=== PATIENT | female | born 1990 | race American Indian/Alaskan Native ===

== ENCOUNTER 2017-07-10 22:40 | Emergency (ER) | payer BC ==
[2017-07-11 00:18] LABS: Bacteria,Urine 4+ /HPF (Negative); Bilirubin,Urine NEG (Negative); Blood,Urine LG (Negative); Ketones,Urine TR mg/dL (Negative); Leukocyte Esterase,Urine LG (Negative); Mucus,Urine 3+ /HPF; Nitrite,Urine POS (Negative); Urobilinogen,Urine < 2.0 mg/dL (<2.0)
[2017-07-11 00:37] LABS: RBC,Urine > 182.0 /HPF (0.0-6.0); WBC,Urine > 182.0 /HPF (0.0-6.0)
[2017-07-11] MEDS ORDERED: ZOFRAN IV ONE (01:16)
[2017-07-11] MEDS ORDERED: NACL 0.9% 1000 ML 1,000 ML IV ONE (01:16)
[2017-07-11] MEDS ORDERED: TYLENOL PO ONE (01:16)
[2017-07-11] MEDS ORDERED: MORPHINE IV ONE (01:16)
[2017-07-11] MEDS ORDERED: LEVAQUIN 500MG/100ML 500 MG/100 ML BAG IV ONE (01:16)
--- NOTE | 2017-07-11 01:19 | Emergency Department Report ---
ED Female HPI - General Chief complaint: Urogenital-Female Stated complaint: BLOOD IN URINE Time Seen by Provider: 07/11/17 01:12 Source: patient, family Mode of arrival: Ambulatory Limitations: No Limitations - History of Present Illness Initial comments: Patient reports that she started having blood in her urine today. Patient states she went to urgent care today and they told her she had a UTI and gave her prescription. She states they told her if it got worse to come to the emergency room. Patient says she is having lower back pain 6 out of 10, per urinary burning and frequency and feels like she is not fully empty her bladder. She reports chills but denies any nausea or vomiting. She says she is able to tolerate oral liquids. Lower back is achy. Last menstrual period . denies any abdominal pain. MD Complaint: dysuria, other (blood in her urine) -: This afternoon Location: other (pain, back) Severity: moderate Severity scale (0 -10): 6 Quality: aching Consistency: constant Improves with: none Worsens with: urination (pain with urination) Are you Now?: No Last Menstrual Period: 06/23/17 EDC: 03/30/18 Associated Symptoms: fever/chills, dysuria, hematuria. denies: vaginal discharge, vaginal bleeding, abdominal pain, nausea/vomiting, headaches, loss of appetite, rash, seizure, shortness of breath, syncope, weakness - Related Data Sexually active: Yes Previous Rx's Medication Instructions Recorded Last Taken Type Acetaminophen [Tylenol] 500 mg PO Q6HR PRN #12 tablet 07/11/17 Unknown Rx Fluconazole [Diflucan TAB] 150 mg PO ONCE #3 tablet 07/11/17 Unknown Rx Nitrofurantoin [place]/M-Cryst 100 mg PO Q12HR #14 capsule 07/11/17 Unknown Rx [Macrobid CAP] Phenazopyridine [Pyridium] 100 mg PO TID PRN #12 tab 07/11/17 Unknown Rx Allergies Allergy/AdvReac Type Severity Reaction Status Date / Time amoxicillin Allergy Rash Verified 07/10/17 23:10 Sulfa (Sulfonamide Allergy Unknown Verified 07/10/17 23:10 Antibiotics) ED Review of Systems ROS: Stated complaint: BLOOD IN URINE Other details as noted in HPI Comment: All other systems reviewed and negative Constitutional: chills, fever. denies: malaise, weakness Respiratory: no symptoms reported Cardiovascular: denies: chest pain, palpitations, edema, syncope Gastrointestinal: denies: abdominal pain, nausea, vomiting, diarrhea, constipation Genitourinary: urgency, dysuria, frequency, hematuria. denies: discharge, abnormal menses Musculoskeletal: back pain. denies: joint swelling, arthralgia, myalgia Skin: denies: rash Neurological: denies: headache, weakness, abnormal gait, vertigo ED Past Medical Hx - Past Medical History Previous Medical History?: No - Surgical History Past Surgical History?: No - Family History Family history: no significant - Social History Smoking Status: Never Smoker Substance Use Type: None Other Social History: Single - Medications Home Medications: Home Medications Medication Instructions Recorded Confirmed Last Taken Type Acetaminophen [Tylenol] 500 mg PO Q6HR PRN #12 tablet 07/11/17 Unknown Rx Fluconazole [Diflucan TAB] 150 mg PO ONCE #3 tablet 07/11/17 Unknown Rx Nitrofurantoin [place]/M-Cryst 100 mg PO Q12HR #14 capsule 07/11/17 Unknown Rx [Macrobid CAP] Phenazopyridine [Pyridium] 100 mg PO TID PRN #12 tab 07/11/17 Unknown Rx ED Physical Exam - General Limitations: No Limitations General appearance: alert, in no apparent distress - Head Head exam: Present: atraumatic, normocephalic, normal inspection - Eye Eye exam: Present: normal appearance, PERRL, EOMI Pupils: Present: normal accommodation - ENT ENT exam: Present: normal exam, normal orophraynx, mucous membranes moist - Neck Neck exam: Present: normal inspection, full ROM. Absent: tenderness, meningismus, lymphadenopathy - Respiratory Respiratory exam: Present: normal lung sounds bilaterally. Absent: respiratory distress, chest wall tenderness - Cardiovascular Cardiovascular Exam: Present: normal rhythm, tachycardia, normal heart sounds. Absent: systolic murmur, diastolic murmur - GI/Abdominal GI/Abdominal exam: Present: soft, normal bowel sounds. Absent: distended, tenderness, guarding, rebound, rigid - Extremities Exam Extremities exam: Present: normal inspection, full ROM, normal capillary refill. Absent: tenderness, pedal edema, joint swelling, calf tenderness - Back Exam Back exam: Present: normal inspection, full ROM, CVA tenderness (R), CVA tenderness (L). Absent: tenderness, muscle spasm, paraspinal tenderness, vertebral tenderness, rash noted - Neurological Exam Neurological exam: Present: alert, oriented X3, normal gait, reflexes normal. Absent: motor sensory deficit - Psychiatric Psychiatric exam: Present: normal affect, normal mood - Skin Skin exam: Present: warm, dry, intact, normal color. Absent: rash ED Course Vital Signs 07/10/17 07/11/17 23:14 03:55 Temperature 99.4 F 99.1 F Pulse Rate 110 H 98 H Respiratory 18 18 Rate Blood Pressure 127/86 Blood Pressure 120/75 [Left] O2 Sat by Pulse 100 100 Oximetry Vital Signs 07/10/17 07/11/17 23:14 03:55 Temperature 99.4 F 99.1 F Pulse Rate 110 H 98 H Respiratory 18 18 Rate Blood Pressure 127/86 Blood Pressure 120/75 [Left] O2 Sat by Pulse 100 100 Oximetry - Reevaluation(s) Reevaluation #1: 07/11/17 03:55 Patient received 1 liter ivf ns and levaquin 500mg iv. Patient given morphine 4 mg iv and zofran 4 mg iv . Tylenol 650 mg po for low grade temperature. 07/11/17 03:57 ED Medical Decision Making - Lab Data Result diagrams: 07/11/17 01:20 07/11/17 01:20 Lab Results 07/10/17 07/11/17 07/11/17 Range/Units 23:22 01:20 01:20 WBC 13.4 H (4.5-11.0) K/mm3 RBC 4.32 (3.65-5.03) M/mm3 Hgb 11.9 (10.1-14.3) gm/dl Hct 36.4 (30.3-42.9) % MCV 84 (79-97) fl MCH 28 (28-32) pg MCHC 33 (30-34) % RDW 13.1 L (13.2-15.2) % Plt Count 292 (140-440) K/mm3 Lymph % (Auto) 7.4 L (13.4-35.0) % [place] % (Auto) 3.9 (0.0-7.3) % Eos % (Auto) 0.1 (0.0-4.3) % Baso % (Auto) 0.3 (0.0-1.8) % Lymph # 1.0 L (1.2-5.4) K/mm3 [place] # 0.5 (0.0-0.8) K/mm3 Eos # 0.0 (0.0-0.4) K/mm3 Baso # 0.0 (0.0-0.1) K/mm3 Seg Neutrophils % 88.3 H (40.0-70.0) % Seg Neutrophils # 11.8 H (1.8-7.7) K/mm3 Sodium 139 (137-145) mmol/L Potassium 4.3 (3.6-5.0) mmol/L Chloride 99.3 (98-107) mmol/L Carbon Dioxide 24 (22-30) mmol/L Anion Gap 20 mmol/L BUN 10 (7-17) mg/dL Creatinine 0.6 L (0.7-1.2) mg/dL Estimated GFR > 60 ml/min BUN/Creatinine Ratio 16.66 % Glucose 97 (65-100) mg/dL Calcium 9.8 (8.4-10.2) mg/dL HCG, Qual (Negative) Urine Color Yellow (Yellow) Urine Turbidity Turbid (Clear) Urine pH 5.0 (5.0-7.0) Ur Specific [place] 1.021 (1.003-1.030) Urine Protein 100 mg/dl (Negative) mg/dL Urine Glucose (UA) Neg (Negative) mg/dL Urine Ketones Tr (Negative) mg/dL Urine Blood Lg (Negative) Urine Nitrite Pos (Negative) Urine Bilirubin Neg (Negative) Urine Urobilinogen < 2.0 (<2.0) mg/dL Ur Leukocyte Esterase Lg (Negative) Urine WBC (Auto) > 182.0 H (0.0-6.0) /HPF Urine RBC (Auto) > 182.0 (0.0-6.0) /HPF Urine Bacteria (Auto) 4+ (Negative) /HPF Urine WBC Clumps 3+ /HPF Urine Mucus 3+ /HPF Urine Yeast (Budding) 3+ /HPF 07/11/17 Range/Units 01:20 WBC (4.5-11.0) K/mm3 RBC (3.65-5.03) M/mm3 Hgb (10.1-14.3) gm/dl Hct (30.3-42.9) % MCV (79-97) fl MCH (28-32) pg MCHC (30-34) % RDW (13.2-15.2) % Plt Count (140-440) K/mm3 Lymph % (Auto) (13.4-35.0) % [place] % (Auto) (0.0-7.3) % Eos % (Auto) (0.0-4.3) % Baso % (Auto) (0.0-1.8) % Lymph # (1.2-5.4) K/mm3 [place] # (0.0-0.8) K/mm3 Eos # (0.0-0.4) K/mm3 Baso # (0.0-0.1) K/mm3 Seg Neutrophils % (40.0-70.0) % Seg Neutrophils # (1.8-7.7) K/mm3 Sodium (137-145) mmol/L Potassium (3.6-5.0) mmol/L Chloride (98-107) mmol/L Carbon Dioxide (22-30) mmol/L Anion Gap mmol/L BUN (7-17) mg/dL Creatinine (0.7-1.2) mg/dL Estimated GFR ml/min BUN/Creatinine Ratio % Glucose (65-100) mg/dL Calcium (8.4-10.2) mg/dL HCG, Qual Negative (Negative) Urine Color (Yellow) Urine Turbidity (Clear) Urine pH (5.0-7.0) Ur Specific [place] (1.003-1.030) Urine Protein (Negative) mg/dL Urine Glucose (UA) (Negative) mg/dL Urine Ketones (Negative) mg/dL Urine Blood (Negative) Urine Nitrite (Negative) Urine Bilirubin (Negative) Urine Urobilinogen (<2.0) mg/dL Ur Leukocyte Esterase (Negative) Urine WBC (Auto) (0.0-6.0) /HPF Urine RBC (Auto) (0.0-6.0) /HPF Urine Bacteria (Auto) (Negative) /HPF Urine WBC Clumps /HPF Urine Mucus /HPF Urine Yeast (Budding) /HPF Urine culture pending - Radiology Data Radiology results: report reviewed No urinary urinary tract calculi or evidence tract obstruction. No abnormal wall thickening or filling defect seen in the urinary bladder. Moderate residual kristen, with no intestinal obstruction or free air - Medical Decision Making ED course: Patient here complaining of lower back pain, blood in her urine and painful urination. She says she went to urgent care and was given medication for a yeast infection and antibiotic for bladder infection and was told that if she feels worse to go to the emergency room. Since that she never filled her medication this all happened today. She said she started feeling worse with fever and chills and increasing back pain and increasing urinary burning. Patient presents to the emergency room and was found to have pyelonephritis. Patient was not having any nausea and vomiting and she was able to tolerate oral liquids. He is given IV fluid normal saline 1 L, Levaquin 500 mg IV, Tylenol 650 mg by mouth for fever, morphine 4 mg IV and Zofran 4 mg IV for pain and prevent nausea. I discussed with patient her CBC, chemistry, urinalysis and test results. This diagnosis and treatment plan and she voiced understanding. Patient will be discharged home with prescription for yeast UTI and acute cystitis with hematuria. Patient had CT scan that did not show any obstruction or kidney stones. Patient understands if she is to follow-up with her primary care physician in 2 days. Diagnostic/labs: The scan of the abdomen and pelvis without IV contrast showed no obstructive uropathy or urolithiasis. CBC with mild elevation in white count and shift to the left suggested bacterial infection otherwise stable CMP stable ,urine culture ended and test is negative . Assessment/plan 1. Pyelonephritis-Stable 2. Lower back pain 3. Hematuria 4. Fever in adults 5.Leukocytosis 6: Yeast UTI 7:Proteinuria Patient discharge home from ED in stable condition. She was able to tolerate oral fluids in ED. She reports she is feeling better. VSS, T99.1. Prescription for Macrobid, Diflucan, Pyrisium and Tylenol pl Follow up with pcp in 2 days Critical care attestation.: If time is entered above; I have spent that time in minutes in the direct care of this critically ill patient, excluding procedure time. ED Disposition Clinical Impression: Pyelonephritis, Fever in adult, Yeast UTI, Dysuria Hematuria Qualifiers: Hematuria type: unspecified type Qualified Code(s): R31.9 - Hematuria, unspecified Back pain Qualifiers: Back pain location: low back pain Chronicity: acute Back pain laterality: bilateral Sciatica presence: without sciatica Qualified Code(s): M54.5 - Low back pain Leukocytosis Qualifiers: Leukocytosis type: unspecified Qualified Code(s): D72.829 - Elevated white blood cell count, unspecified Proteinuria Qualifiers: Proteinuria type: unspecified Qualified Code(s): R80.9 - Proteinuria, unspecified Disposition: DC-01 TO HOME OR SELFCARE Is pt being admited?: No Does the pt Need Aspirin: No Condition: Stable Instructions: Fever in Adults (ED), Acute Pyelonephritis (ED), Acute Hematuria (ED), Back Pain (ED) Additional Instructions: Please increase your fluid intake Take antibiotic as prescribed take diflucan for for yeast infection in your urine Take Tylenol Pl for fever and pain If you develop worsening fever, nausea and/or vomiting, increase in back pain please return to emergency room Take Pyridium for urinary burning Prescriptions: Acetaminophen [Tylenol] 500 mg PO Q6HR PRN #12 tablet PRN Reason: Fever Fluconazole [Diflucan TAB] 150 mg PO ONCE #3 tablet Nitrofurantoin [place]/M-Cryst [Macrobid CAP] 100 mg PO Q12HR #14 capsule Phenazopyridine [Pyridium] 100 mg PO TID PRN #12 tab PRN Reason: Urinary burning Referrals: ONEL CHRISTIANSEN MD [Primary Care Provider] - 2-3 Days Forms: Accompanied Note, Work/School Release Form(ED)
[2017-07-11] MEDS ORDERED: TYLENOL ONE (01:34)
[2017-07-11 01:53] LABS: Basophils % (Auto) 0.3 % (0.0-1.8); Eosinophils % (Auto) 0.1 % (0.0-4.3); Hematocrit 36.4 % (30.3-42.9); Hemoglobin 11.9 gm/dl (10.1-14.3); Mean Corpuscular HGB Conc 33 % (30-34); Mean Corpuscular Hemoglobin 28 pg (28-32); Mean Corpuscular Volume 84 fl (79-97); Platelet Count 292 K/mm3 (140-440); Red Blood Count 4.32 M/mm3 (3.65-5.03); Red Cell Distribution Width 13.1 % (13.2-15.2); White Blood Count 13.4 K/mm3 (4.5-11.0)
[2017-07-11 02:12] LABS: BUN/Creatinine Ratio 16.66; Blood Urea Nitrogen 10 mg/dL (7-17); Calcium 9.8 mg/dL (8.4-10.2); Carbon Dioxide 24 mmol/L (22-30); Glucose 97 mg/dL (65-100)
[2017-07-11 02:13] LABS: Chloride 99.3 mmol/L (98-107); Sodium 139 mmol/L (137-145)
[2017-07-11 02:51] LABS: Anion Gap 20 mmol/L; Potassium 4.3 mmol/L (3.6-5.0)
--- NOTE | 2017-07-11 03:17 | Cat Scan Report ---
FINAL REPORT EXAM: CT ABDOMEN PELVIS W/O CONTRAST. HISTORY: Hematuria, with flank pain and UTI . TECHNIQUE: Unenhanced axial CT images of the abdomen and pelvis were obtained, with coronal and sagittal reformatted images. No prior studies are available for comparison. FINDINGS: The unenhanced liver, biliary tree, gallbladder, pancreas, spleen, and right adrenal gland are unremarkable. There is mild diffuse thickening of the left adrenal gland, likely due to hyperplasia, without discrete mass or nodule. The unenhanced kidneys demonstrate no discrete renal lesions. There are no radiopaque urinary tract calculi or evidence of urinary tract obstruction. The distended urinary bladder demonstrates no abnormal wall thickening or filling defect. Evaluation of the bowel is limited due to lack of oral contrast. The stomach is collapsed, not well evaluated. There is moderate residual stool in the colon. There is no intestinal obstruction or free air. Of note, the appendix is normal. The abdominal aorta is normal in caliber. There is no pathologic abdominal or pelvic lymphadenopathy. There is moderate posterior pelvic free fluid, likely physiologic. Minimal cystic changes are seen within both adnexa, within normal limits for patient's age. The uterus demonstrates a grossly normal CT appearance. Multiple calcified phleboliths are seen in the pelvis. A 3 mm probable bone island seen in the anterior left femoral head. No other discrete osseous abnormality is seen. The visualized lung bases are clear. IMPRESSION: 1. No radiopaque urinary tract calculi or evidence of urinary tract obstruction. No abnormal wall thickening or filling defect seen in the urinary bladder. 2. Moderate residual stool, with no intestinal obstruction or free air.
[2017-07-11 03:56] VITALS: BP 120/75
== END 2017-07-11 04:48 | disposition home or self-care (01) ==
LOC: ED 22:40
DX: N12 Tubulo-interstitial nephritis, not specified as acute or chronic (principal); B37.49 Other urogenital candidiasis; R30.0 Dysuria; R31.9 Hematuria, unspecified; M54.5 Low back pain; D72.829 Elevated white blood cell count, unspecified; R80.9 Proteinuria, unspecified; Z88.1 Allergy status to other antibiotic agents; Z88.2 Allergy status to sulfonamides
CPT/HCPCS: 36415; 74176; 80048; 81001; 84703; 85025; 87076; 87086; 87186; 96365; 96366; 96375; 99284; J1956; J2270; J2405; J7030